=== PATIENT | female | born 2000 | race Caucasian/White ===

== ENCOUNTER 2019-05-02 15:03 | Emergency (ER) | payer BC ==
[2019-05-02 17:59] LABS: ABS Lymphocytes 1.8 10^3/ul (1.0-4.8); ABS Monocytes 0.3 10^3/ul (0-0.8); ABS Neutrophils 4.6 10^3/ul (1.5-7.7); Eosinophil % 0.1 %; Hematocrit 38 % (35-47); Hemoglobin 13.3 g/dL (12.0-16.0); Lymphocyte % 26.5 %; Mean Corpuscular HGB Conc 35 g/dL (31-36); Mean Corpuscular Hemoglobin 30 pg (27-31); Mean Corpuscular Volume 86 fL (80-97); Mean Platelet Volume 7.1 fL (7.4-10.4); Nucleated Red Blood Cells % 0.1; Platelet Count 282 10^3/uL (150-450); Red Blood Count 4.43 10^6 /uL (3.70-4.87); Red Cell Distribution Width 13 % (10-15); White Blood Count 6.7 10^3/uL (3.5-10.8)
[2019-05-02 18:16] LABS: ALT 15 U/L (7-52); AST 17 U/L (13-39); Albumin 4.3 g/dL (3.2-5.2); Albumin/Globulin Ratio 1.2 (1-3); Alkaline Phosphatase 81 U/L (34-104); Anion Gap 8 mmol/L (2-11); BUN/Creatinine Ratio 11.1 (8-20); Blood Urea Nitrogen 9 mg/dL (6-24); C Reactive Protein < 1.00 mg/L (<8.01); CO2 Carbon Dioxide 29 mmol/L (22-32); Calcium 9.6 mg/dL (8.6-10.3); Chloride 101 mmol/L (101-111); EGFR African American 110.2 (>60); EGFR Non-African American 91.1 (>60); Globulin 3.6 g/dL (2-4); Glucose 101 mg/dL (70-100); Potassium 4.1 mmol/L (3.5-5.0); Sodium 138 mmol/L (135-145); Total Protein 7.9 g/dL (6.4-8.9)
[2019-05-02 18:23] LABS: HCG Pregnancy < 0.60 mIU/mL
[2019-05-02] MEDS ORDERED: Acetaminophen TAB* 325 MG PO ONE (19:04)
--- NOTE | 2019-05-02 19:06 | ED ---
Abdominal Pain/Female - HPI Summary HPI Summary: Patient is a 18 y/o F presenting to the ED for a chief complaint of LUQ and left flank abdominal pain that began on 05/02/19. Patient was sent from Urgent Care. She notes the abdominal pain radiates to the back and she rates the pain as 4/10 in severity. She also reports lightheadedness and sore throat. Patient denies nausea, vomiting, diarrhea, fever, dysuria, hematuria, or vaginal bleeding. She denies any aggravating or alleviating factors. Three weeks ago, the patient had a fever that has since resolved and swollen tonsils for which she was given antibiotics for tonsillitis. At that time, she was not tested for mono. She denies any significant PMHx or PSHx. - History of Current Complaint Chief Complaint: EDAbdPain Stated Complaint: ABD PAIN PER PT Time Seen by Provider: 05/02/19 17:48 Hx Obtained From: Patient Onset/Duration: Sudden Onset, Still Present Timing: Constant Severity Initially: Moderate Severity Currently: Moderate Pain Intensity: 4 Pain Scale Used: 0-10 Numeric Location: Discrete At: LUQ, Flank - Left Radiates: Yes Radiates to: Back Aggravating Factor(s): Nothing Alleviating Factor(s): Nothing Associated Signs and Symptoms: Positive: Fever - Resolved, Other: - Positive sore throat and lightheadedness. Negative: Urinary Symptoms - Negative dysuria or hematuria, Vaginal Bleeding, Nausea, Vomiting, Diarrhea Allergies/Adverse Reactions: Allergies Allergy/AdvReac Type Severity Reaction Status Date / Time No Known Allergies Allergy Verified 05/02/19 17:46 PMH/Surg Hx/FS Hx/Imm Hx Previously Healthy: Yes Endocrine/Hematology History: Denies: Hx Diabetes Cardiovascular History: Denies: Hx Hypercholesterolemia, Hx Hypertension Sensory History: Denies: Hx Legally Blind, Hx Deafness Opthamlomology History: Denies: Hx Legally Blind EENT History: Denies: Hx Deafness - Surgical History Surgical History: None Surgery Procedure, Year, and Place: None - Immunization History Date of Tetanus Vaccine: utd Date of Influenza Vaccine: none Infectious Disease History: No Infectious Disease History: Denies: Traveled Outside the [place] in Last 30 Days - Family History Known Family History: Negative: Diabetes - Social History Occupation: Student Alcohol Use: Occasionally Hx Substance Use: Yes Substance Use Type: Reports: Cocaine, Marijuana Substance Use Comment - Amount & Last Used: last use cocaine 1 mo ago, marijuana 2 weeks Hx Tobacco Use: No Smoking Status (MU): Never Smoked Tobacco Review of Systems Positive: Fever - Resolved Positive: Sore Throat, Other - Positive enlarged tonsils Positive: Abdominal Pain - LUQ and left flank. Negative: Vomiting, Diarrhea, Nausea Positive: other - Negative vaginal bleeding. Negative: dysuria, hematuria Neurological: Other - Positive lightheadedness All Other Systems Reviewed And Are Negative: Yes Physical Exam - Summary Physical Exam Summary: Constitutional: Well-developed, Well-nourished, Alert. (-) Distressed Skin: Warm, Dry HENT: Normocephalic; Atraumatic Eyes: Conjunctiva normal Neck: Musculoskeletal ROM normal neck. (-) JVD, (-) Stridor, (-) Nuchal rigidity Cardio: Rhythm regular, rate normal, Heart sounds normal; Intact distal pulses; Radial pulses are 2+ and symmetric. (-) Murmur Pulmonary/Chest wall: Effort normal. (-) Respiratory distress, (-) Wheezes, (-) Rales Abd: LUQ and L flank TTP, Soft, (-) tenderness, (-) Distension, (-) Guarding, (- ) Rebound. Musculoskeletal: (-) Edema Lymph: (-) Cervical adenopathy Neuro: Alert, Oriented x3 Psych: Mood and affect Normal Triage Information Reviewed: Yes Vital Signs On Initial Exam: Initial Vitals Temp Pulse Resp BP Pulse Ox 98.3 F 110 16 133/90 99 05/02/19 15:07 05/02/19 15:07 05/02/19 15:07 05/02/19 15:07 05/02/19 15:07 Vital Signs Reviewed: Yes Procedures - Procedure Summary Procedure Summary: bedside us of LUQ: no free fluid, no hydronephrosis noted. - Sedation Patient Received Moderate/Deep Sedation with Procedure: No Diagnostics - Vital Signs Vital Signs Temp Pulse Resp BP Pulse Ox 05/02/19 17:01 98.1 F 110 16 131/81 98 05/02/19 15:07 98.3 F 110 16 133/90 99 - Laboratory Lab Results: Lab Results 05/02/19 05/02/19 05/02/19 Range/Units 17:53 17:53 17:53 WBC 6.7 (3.5-10.8) 10^3/uL RBC 4.43 (3.70-4.87) 10^6 /uL Hgb 13.3 (12.0-16.0) g/dL Hct 38 (35-47) % MCV 86 (80-97) fL MCH 30 (27-31) pg MCHC 35 (31-36) g/dL RDW 13 (10-15) % Plt Count 282 (150-450) 10^3/uL MPV 7.1 L (7.4-10.4) fL Neut % (Auto) 69.3 % Lymph % (Auto) 26.5 % [place] % (Auto) 3.8 % Eos % (Auto) 0.1 % Baso % (Auto) 0.3 % Absolute Neuts (auto) 4.6 (1.5-7.7) 10^3/ul Absolute Lymphs (auto) 1.8 (1.0-4.8) 10^3/ul Absolute Monos (auto) 0.3 (0-0.8) 10^3/ul Absolute Eos (auto) 0.0 (0-0.6) 10^3/ul Absolute Basos (auto) 0.0 (0-0.2) 10^3/ul Absolute Nucleated RBC 0.0 10^3/ul Nucleated RBC % 0.1 Sodium 138 (135-145) mmol/L Potassium 4.1 (3.5-5.0) mmol/L Chloride 101 (101-111) mmol/L Carbon Dioxide 29 (22-32) mmol/L Anion Gap 8 (2-11) mmol/L BUN 9 (6-24) mg/dL Creatinine 0.81 (0.51-0.95) mg/dL Est GFR ( Amer) 110.2 (>60) Est GFR (Non-Af Amer) 91.1 (>60) BUN/Creatinine Ratio 11.1 (8-20) Glucose 101 H (70-100) mg/dL Lactic Acid 0.9 (0.5-2.0) mmol/L Calcium 9.6 (8.6-10.3) mg/dL Total Bilirubin 0.30 (0.2-1.0) mg/dL AST 17 (13-39) U/L ALT 15 (7-52) U/L Alkaline Phosphatase 81 (34-104) U/L C-Reactive Protein < 1.00 (<8.01) mg/L Total Protein 7.9 (6.4-8.9) g/dL Albumin 4.3 (3.2-5.2) g/dL Globulin 3.6 (2-4) g/dL Albumin/Globulin Ratio 1.2 (1-3) Lipase 12 (11.0-82.0) U/L Beta HCG, Quant < 0.60 mIU/mL Result Diagrams: 05/02/19 17:53 05/02/19 17:53 Lab Statement: Any lab studies that have been ordered have been reviewed, and results considered in the medical decision making process. Re-Evaluation - Re-Evaluation 20:55 Change: Improved Abdominal Pain Fem Course/Dx - Course Course Of Treatment: 18 y/o F p/w LUQ abd pain. - PE w well appearing female, NAD. Mild TTP of LUQ/L flank. No signs of infection on labs (no leukocytosis), UA w/o infection. Denies cough/URI symptoms, do not suspect PNA. Recent sore throat, neg mono do not suspect splenomegaly as cause for pain. No RBC in UA to suggest renal stone. Tolerating PO, having BM do not suspect SBO. Neg preg, no pelvic pain or vaginal discharge, do not suspect pelvic pathology (ectopic, PID , torsion). At this time cause unclear, but patient feeling better w IVF and toradol. D/w her CT a/p, decision to try PO pain meds at home and return for worsening symptoms. - Diagnoses Provider Diagnoses: LUQ abdominal pain Discharge ED - Sign-Out/Discharge Documenting (check all that apply): Patient Departure - Discharge - Discharge Plan Condition: Stable Disposition: HOME Patient Education Materials: Acute Abdominal Pain (ED) Referrals: [facility] [Outside] [facility] [Z.BUSINESS, APPLICATION, OTHER] - Additional Instructions: You were seen in the emergency department for left sided abdominal pain. Your labs and show any evidence of infection. Her Monospot was negative. If any studies were not completed at the time of discharge you will be called with the relevant results. Please follow up with your primary care doctor in next 2-3 days and return to emergency department for worsening pain, fevers, vomiting, inability to eat or drink,or concerning symptoms. It was a pleasure taking care of you today. - Billing Disposition and Condition Condition: STABLE Disposition: Home - Attestation Statements Document Initiated by Clayton: Yes Documenting Scribe: Stacey Medina Provider For Whom Clayton is Documenting (Include Credential): Calista Raymond MD Scribe Attestation: I, Stacey Medina, scribed for Calista Raymond MD on 05/04/19 at 1033. Scribe Documentation Reviewed: Yes Provider Attestation: The documentation as recorded by the ninfaibe, Stacey Medina accurately reflects the service I personally performed and the decisions made by me, Calista Raymond MD Status of Scribe Document: Viewed
[2019-05-02] MEDS ORDERED: NS 0.9% 1000 ML** 1,000 ML IV ONE (19:16)
[2019-05-02 19:52] LABS: Urine Appearance Clear; Urine Bilirubin Negative (Negative); Urine Blood Negative (Negative); Urine Color Straw; Urine Glucose Negative (Negative); Urine Ketones Negative (Negative); Urine Nitrite Negative (Negative); Urine Protein Negative (Negative); Urine Specific Gravity 1.009 (1.010-1.030); Urine Urobilinogen Negative (Negative)
[2019-05-02] MEDS ORDERED: Ketorolac INJ* 30 MG/ML 1 ML VIAL IV ONE (20:14)
== END 2019-05-02 21:12 | disposition home or self-care (01) ==
LOC: ED 15:03
DX: R10.12 Left upper quadrant pain (principal)
CPT/HCPCS: 36415; 80053; 81003; 83605; 83690; 84702; 85025; 86140; 86308; 96361; 96374; 99282; A9270-GY; J1885